=== PATIENT | female | born 1980 | race Caucasian/White ===

== ENCOUNTER 2017-06-11 11:16 | Emergency (ER) | payer BC, OTHER ==
[~2017-06-11] VITALS: Ht 177.8 cm; Wt 68.0 kg
[~2017-06-11 11:16] MED LIST: ESCI10TA PO; LEVO200T PO; MORP15TA PO; TRAM50TA92 PO
--- NOTE | 2017-06-11 11:32 | NUR ---
"I TRIPPED ON MY PUPPY" BACK OF HEAD PAIN, DENIES LOC, NO LACERATION NOTED
--- NOTE | 2017-06-11 11:45 | NUR ---
BB FAMILY: HEADACHE S/P FALL THIS AM STATES "I TRIPPED ON MY PUPPY" , C/O BACK PAIN. NAD NOTED. VSS. SEEN BY MD FOR EVAL. SAFETY AND COMFORT MEASURES PROVIDED. WILL MONITOR.
--- NOTE | 2017-06-11 13:15 | NUR ---
IV removed. Catheter intact and site benign. Pressure and 4x4 applied to site. No bleeding noted.
--- NOTE | 2017-06-11 13:21 | NUR ---
Patient discharged to home in stable condition. Written and verbal after care instructions given. Patient verbalizes understanding of instruction.
[2017-06-11 13:26] VITALS: BP 104/68
== END 2017-06-11 13:27 | disposition home or self-care (01) ==
LOC: ER 11:17
DX: S09.90XA Unspecified injury of head, initial encounter (principal); R41.82 Altered mental status, unspecified; E86.0 Dehydration; Z85.850 Personal history of malignant neoplasm of thyroid; W01.0XXA Fall on same level from slipping, tripping and stumbling without subsequent striking against object, initial encounter; Y92.89 Other specified places as the place of occurrence of the external cause; Y93.89 Activity, other specified; Y99.8 Other external cause status
CPT/HCPCS: 70450-TC; A4606; J1885; J7030; Z7610